=== PATIENT | male | born 1930 | race Caucasian/White ===

== ENCOUNTER → 2016-05-08 | Outpatient (REF) | payer MEDICARE ==
[~2016-05-08] MED LIST: /TAMS4CA PO; ALLO300T OR; ALTA10CA OR; ASPI81TA3 OR; AVOD0.5C OR; CARV6.25 OR; GLIP10TA97 OR; LIPI20TA OR; METF500T4 OR; NITR0.3D TD; OMEP20TA7 OR; TIMO0.5S OP; [UNRECOGNIZED DRUG - OTHER] OU
[2016-05-08 12:36] LABS: MEAN CORPUSCULAR HEMOGLOBIN 31.6 pg (27.0-33.0); MEAN CORPUSCULAR HGB CONC 31.7 g/dl (32.0-36.5); MEAN CORPUSCULAR VOLUME 99.9 fl (80.0-96.0); RED CELL DISTRIBUTION WIDTH 14.2 % (11.5-14.5); WHITE BLOOD COUNT 6.7 K/mm3 (4.0-10.0)
[2016-05-08 12:49] LABS: ALBUMIN 3.3 GM/DL (3.2-5.2); ALBUMIN/GLOBULIN RATIO 1.18 (1.00-1.93); ALKALINE PHOSPHATASE 94 U/L (45-117); ALT/SGPT 13 U/L (12-78); ANION GAP 6 MEQ/L (8-16); AST/SGOT 9 U/L (15-37); BILIRUBIN,TOTAL 0.4 MG/DL (0.2-1.0); BLOOD UREA NITROGEN 13 MG/DL (7-18); CALCIUM LEVEL 8.7 MG/DL (8.8-10.2); CARBON DIOXIDE LEVEL 31 MEQ/L (21-32); CHLORIDE LEVEL 107 MEQ/L (98-107); CREATININE FOR GFR 0.77 MG/DL (0.70-1.30); GLOMERULAR FILTRATION RATE > 60.0 (>35); GLUCOSE, FASTING 105 MG/DL (83-110); POTASSIUM SERUM 4.5 MEQ/L (3.5-5.1); SODIUM LEVEL 144 MEQ/L (136-145); TOTAL PROTEIN 6.1 GM/DL (6.4-8.2)
== END ==
LOC: M SFHCPLAZ 09:06
PROVIDERS: ATTEND Physician Assistant
DX: I10 Essential (primary) hypertension (principal)

== ENCOUNTER → 2016-08-16 | Outpatient (REF) | payer MEDICARE | LOC: M SFHCLERA 11:33 | PROVIDERS: ATTEND Dermatology | DX: C44.42 Squamous cell carcinoma of skin of scalp and neck (principal) ==

== ENCOUNTER → 2016-09-11 | Outpatient (CLI) | payer MEDICARE ==
--- NOTE | 2016-09-12 05:48 | RADONC ---
RADIATION ONCOLOGY CONSULTATION NOTE DATE: 09/11/2016 CHART NUMBER: [id number] DIAGNOSIS: Multiple skin cancers. STAGE: I, T1N0M0. Other cancer staging in progress. ECOG PERFORMANCE STATUS: 2. CONSULTATION NOTE: Mr. 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 HISTORY OF PRESENT ILLNESS: The patient has a long history of various skin lesions. He reports that he has had skin lesions in the past and he is not chosen to undertake any treatment. Apparently for years there is been a mass growing above his left eye. It appears fixed to the bone and is now distorting his eyelid and overhanging his eye. The skin itself does not appear to be ulcerated or grossly involved. This area is tender. The patient has refused CT scans or other studies of this area. This area has not been biopsied yet. He reports that he does not want treatment to his scalp lesion, but wants this forehead lesion treated. He reports that it is quite painful. PAST MEDICAL HISTORY: The patient's past medical history is positive for emphysema, cardiac difficulties, hypertension, urinary tract infections, bilateral cataract surgeries and left knee surgery. He has arthritis and a history of kidney stones as well. ALLERGIES: The patient is allergic to PENICILLIN and ASPIRIN. SOCIAL HISTORY: The patient does not smoke cigarettes nor abuse alcohol. FAMILY HISTORY: The patient's family history is positive for a mother with intestinal cancer, a son with prostate cancer and other some skin cancer. REVIEW OF SYSTEMS: The patient's review of systems are positive for the physical limitations secondary to old age as well as pain over his left forehead and eyebrow region. He has anorexia as well as weight loss and decreased energy. He also reports difficulty with chewing. He denies nausea, vomiting, fevers, chills, night sweats, diplopia, headaches, anxiety or depression, rectal bleeding, chest pain, shortness of breath. PHYSICAL EXAMINATION: The patient is an elderly white male in no acute distress. There is approximately a 1/2 cm raised ulcerative lesion consistent with his history of squamous cell carcinoma over his upper right scalp. This is the biopsied lesion. Over his left forehead above is eye there is a larger mass measuring several centimeters which appears to be pulling his eyelid up. It is tender to touch but appears to be fixed. There is also a small lesion behind his left ear as well as a few other areas of concern over the skin. I do not appreciate any palpable preauricular, cervical, supraclavicular, infraclavicular lymphadenopathy present. ASSESSMENT: I had a very lengthy discussion with this patient and his daughter. I explained to them in detail the potential benefits as well as possible acute and chronic sequelae of external beam radiation therapy for his scalp lesion. I explained the logistics of treatment planning, simulation, and subsequent treatments. I also explained to the patient and his daughter that we do not have the pathologic confirm diagnosis of what is going on over his left eye. We need a biopsy confirmation prior to recommending treatment. I am also quite concerned with the proximity of this to the patient's eye. I have ordered a CT simulation for treatment planning purposes. We can undertake this prior to pathologic confirmation to see the extent of this lesion. I do not know if it is going to be possible to treat this without the eye being involved in the radiation field. This could cause the patient significant quality of life issues including pain and discomfort. We will undertake treatment planning to see if we can come up with something that can spare the patient's eye while at the same time alleviating his pain to this area. Once again in summary, I am referring the patient back to his r[facility] community for biopsy of this left-sided lesion. In addition I am setting him up for simulation and initiation of treatment plan planning of the left-sided lesion. I have also recommended if he undergoes treatment that we treat the right-sided scalp lesion which has a confirmed diagnosis of squamous cell carcinoma. Thank you for allowing us to participate in the care of this very pleasant gentleman. I will keep your informed of any new developments as they occur. cc: MD Zak Guadarrama MD
== END ==
LOC: M ONCR 13:02
PROVIDERS: ATTEND Radiology Radiation Oncology
DX: C44.42 Squamous cell carcinoma of skin of scalp and neck (principal)

== ENCOUNTER → 2016-09-26 | Outpatient (REF) | payer MEDICARE | LOC: M LAB REF 11:48 | PROVIDERS: ATTEND Dermatology | DX: C44.329 Squamous cell carcinoma of skin of other parts of face (principal); C44.529 Squamous cell carcinoma of skin of other part of trunk ==

== ENCOUNTER → 2016-10-01 | Outpatient (REF) | payer MEDICARE | LOC: M SFHCLERA 21:29 | PROVIDERS: ATTEND Dermatology | DX: C44.320 Squamous cell carcinoma of skin of unspecified parts of face (principal) ==

== ENCOUNTER 2016-10-03 14:02 | Outpatient (RCR) | payer MEDICARE ==
--- NOTE | 2016-10-05 10:51 | RADONC ---
RADIATION ONCOLOGY SIMULATION NOTE: DATE: 10/03/2016 CHART NUMBER: [id number]. SIMULATION NOTE: Mr. Dunn was taken to the CT scan for CT simulation of his forehead field. CT was accomplished without difficulty or discomfort. Radiation treatment planning is underway and radiation treatments will begin subsequently. An immobilization device including a mask was created without difficulty or discomfort. It will be used throughout the course of treatment. I was physically present throughout the course CT simulation.
== END 2016-10-11 ==
LOC: M ONCR 14:02
PROVIDERS: ATTEND Radiology Radiation Oncology
DX: C44.42 Squamous cell carcinoma of skin of scalp and neck (principal)

== ENCOUNTER → 2016-10-03 | Outpatient (CLI) | payer MEDICARE | LOC: M RAD 13:57 | PROVIDERS: ATTEND Radiology Radiation Oncology | DX: C44.42 Squamous cell carcinoma of skin of scalp and neck (principal); Z88.0 Allergy status to penicillin; Z88.8 Allergy status to other drugs, medicaments and biological substances ==

== ENCOUNTER 2016-10-12 11:01 | Outpatient (RCR) | payer MEDICARE ==
--- NOTE | 2016-10-17 09:05 | RADONC ---
RADIATION ONCOLOGY SIMULATION NOTE: DATE: 10/16/2016 Mr. Dunn was taken to the linear accelerator today for clinical setup of his scalp electron beam field. Setup was accomplished without difficulty or discomfort. Radiation treatment planning is underway and radiation treatments will begin subsequently. An immobilization device was created and will be used throughout the course of treatment. I was physically present throughout the course of simulation.
--- NOTE | 2016-10-23 05:53 | RADONC ---
RADIATION ONCOLOGY PROGRESS NOTE DATE: 10/22/2016 CHART NUMBER: [id number]. PROGRESS NOTE: Mr. Dunn is presently at a dose of 800 cGy to his left eyebrow and 250 cGy to his scalp and is tolerating treatments quite well at this point with no significant difficulties at this time related to his radiation therapy. He has no new eye discomfort or other problems. REVIEW OF SYSTEMS: The patient's review of systems is positive for difficulties with reading. He has been trying to read and watch television with both eyes open at the same time. His review of systems is otherwise positive for depression, but other than that is noncontributory. Denies nausea, vomiting, fevers, chills, night sweats, diplopia, headaches, anxiety or depression, anorexia, weight loss, visual disturbances, chest pain, urinary or bowel difficulties, bone pain, or neurological problems. PHYSICAL EXAMINATION: The patient's skin is in excellent condition with no evidence of radiation change present. There is no moist or dry desquamation. ASSESSMENT: The patient is tolerating treatments quite well and radiation will continue as scheduled. I have strongly suggested that the patient use an eye patch while attempting to read or watch television. I think this will help him significantly.
--- NOTE | 2016-10-30 06:10 | RADONC ---
RADIATION ONCOLOGY PROGRESS NOTE DATE: 10/29/2016 CHART NUMBER: [id number] Mr. Dunn is presently at a dose of 1800 cGy to his left eyebrow and 1500 cGy to his right scalp. He is tolerating his treatments fairly well. The patient continues to complain of pain over his left eye. REVIEW OF SYSTEMS: The patient's review of systems is noncontributory. Denies nausea, vomiting, fevers, chills, night sweats, diplopia, headaches, anxiety or depression, anorexia, weight loss, visual disturbances, chest pain, urinary or bowel difficulties, bone pain, or neurological problems. PHYSICAL EXAMINATION: The patient's skin is in good condition with no evidence of moist or dry desquamation. He continues to have a large mass above his left eye. The remainder of his physical exam remains unchanged. Mr. Dunn is tolerating treatments quite well and radiation will continue as scheduled.
--- NOTE | 2016-11-06 08:03 | RADONC ---
RADIATION ONCOLOGY TREATMENT SUMMARY: DATE: 11/05/2016 CHART NUMBER: [id number] DIAGNOSIS: Multiple skin cancer. STAGE: I, T1N0M0 ECOG PERFORMANCE STATUS: 4 Mr. Dunn is an elderly 86-year-old white male with the diagnosis of skin cancers for which he presented for consideration of definitive external beam radiation therapy. We treated the patient to the left eyebrow skin lesion for a total dose of 2400 cGy delivered in 12 fractions of 200 cGy each over 16 elapsed days from 10/17/2016 through 11/02/2016. The patient's eyebrow was treated on the linear accelerator utilizing a 6 MV photon beam via a right anterior oblique and left posterior oblique selby utilizing 3D conformal therapy. A bolus was placed over the field as indicated in the treatment plan. In addition, we treated the patient's right scalp to a dose of 2250 cGy delivered in 9 fractions of 250 cGy each from 10/22/2016 through 11/02/2016. This was also treated on a linear accelerator. A 6 MEV electron beam was utilized via en face technique prescribed to the 90% isodose line and 0.5 2 cm of tissue equivalent bolus was placed over that field. The patient came in today reporting that his overall condition continued to deteriorate. He has not been eating and feels overall weak. He has decided to discontinue treatments at this time and will be signing up to hospice. He wishes to stay home. The patient and his family do report that they have seen a marked reduction in the size of his lesions already. If the patient changes his mind in the next few days, we are more than glad to reinitiate treatment. We had planned on delivering a significantly bigger dose of radiation and clearly is responding to these treatments. In light of the fact that the patient has scheduled himself for hospice care. I have discharged him at this time from our followup and treatment schedule. As noted above, I am more than glad to reinitiate and complete therapy as prescribed. If he so desires. Considering his overall age and condition, I cannot disagree with his decision. I hope we have been of some benefit to him and provided him with some relief at least for short time. cc: MD Zak Guadarrama MD
== END 2016-11-10 ==
LOC: M ONCR 11:01
PROVIDERS: ATTEND Radiology Radiation Oncology
DX: C44.92 Squamous cell carcinoma of skin, unspecified (principal)